=== PATIENT | female | born 1955 | race Caucasian/White ===

== ENCOUNTER → 2017-08-27 | Outpatient (CLI) | payer BC ==
[~2017-08-27] VITALS: Ht 158.8 cm; Wt 70.4 kg
[~2017-08-27] MED LIST: ASPIR 8181 M1 PO; NEXIUM40 MG PO; VITAMIN D PO
== END | disposition home or self-care (01) ==
LOC: AMB 07:25
DX: Z12.11 Encounter for screening for malignant neoplasm of colon (principal); K22.10 Ulcer of esophagus without bleeding; K44.9 Diaphragmatic hernia without obstruction or gangrene; K29.60 Other gastritis without bleeding; K57.30 Diverticulosis of large intestine without perforation or abscess without bleeding; Z79.82 Long term (current) use of aspirin; E66.3 Overweight; Z90.710 Acquired absence of both cervix and uterus; Z90.722 Acquired absence of ovaries, bilateral; Z82.49 Family history of ischemic heart disease and other diseases of the circulatory system; Z80.3 Family history of malignant neoplasm of breast
CPT/HCPCS: 88305; 88342 TC